=== PATIENT | male | born 1945 | race Caucasian/White ===

== ENCOUNTER 2017-03-29 21:40 | Emergency (ER) | payer MEDICARE, BC ==
[~2017-03-29] VITALS: Ht 185.4 cm; Wt 131.4 kg
[~2017-03-29 21:40] MED LIST: 1-ME1LIQ PO; CARV12.52 PO; CLON.2 PO; GLUCTAB PO; LISI-366 PO; PREVASTATIN PO; SERT-129 PO; TORS20TA PO
[2017-03-29 21:46] VITALS: BP 199/94; PULSE 85; RESP 20; TEMP 98; O2SAT 99
[2017-03-29] MEDS ORDERED: AMLO10TA2 PO (21:50)
[2017-03-29] MEDS ORDERED: LISI40TA PO (21:50)
[2017-03-29] MEDS ORDERED: CLON0.2T PO (21:50)
[2017-03-29] MEDS ORDERED: CARV25TA PO (21:50)
[2017-03-29] MEDS ORDERED: TEMA15CA PO (21:50)
[2017-03-29 21:56] VITALS: BP 183/89; PULSE 78; RESP 24; TEMP 100; O2SAT 98
--- NOTE | 2017-03-29 22:14 | PD ---
HPI Chief Complaint: Respiratory Symptoms Time Seen by Provider: 22:01 Travel History International Travel<30 days: No Contact w/Intl Traveler<30days: No Traveled to known affect area: No History of Present Illness HPI Patient is a 72-year-old male who has had a upper respiratory like infection for the last few days and now he's having severe wheezing comes in by ambulance getting a DuoNeb and having tachypnea and wheezing and shortness of breath. He denies having a COPD history he has no history of asthma he has never had his lungs inflamed as they appear to be now initial exam he has diffuse wheeze in all lung cabrera. And after the first DuoNeb his sat is 95 on room air continues to have increased in formation and wheezing diffuse throughout all his lung cabrera patient denies diabetes hypertension however he did have an VT he said 10 years ago he did not have any stents since then but has had a nuclear stress he said which was normal in the last 5 years. He has not seen another doctor he did not take anything for this upper respiratory infection and again he was treated en route by the paramedics with a DuoNeb continuous PFSH Past Medical History Cardiovascular Problems: Yes Diabetes: Yes Patient Takes Glucophage: No Diminished Hearing: No Hypertension: Yes Musculoskeletal: Yes Respiratory: Yes (SLEEP APNEA ) Immunizations Current: Yes Tetanus Vaccination: < 5 Years Influenza Vaccination: Yes Past Surgical History Abdominal Surgery: Yes (APPENDECTOMY; UMBILICAL HERNIA) Genitourinary Surgery: Yes (TURP) Other Surgery: Yes Social History Alcohol Use: Yes (RARELY) Tobacco Use: No (QUIT IN 1985) Substance Use: No Allergies-Medications (Allergen,Severity, Reaction): Coded Allergies: No Known Allergies (Unverified Adverse Reaction, Unknown, 03/30/17) Reported Meds & Prescriptions Reported Meds & Active Scripts Active Pulmicort Flexhaler (Budesonide Powder Inh) 180 Mcg/Act Inhp 180 Mcg INH Q12HR Prednisone 20 Mg Tab 20 Mg PO BID 10 Days [Albuterol-Ipratropium Neb] 1 AMPULE Nebu 1 Ampule NEB Q6HR NEB 30 Days Nebulizer 1 Mis Mis Ea .ROUTE DIRECTED Atrovent HFA 12.9 GM Inh (Ipratropium [place]) 17 Mcg/Actuation Aer 2 Puff INH Q6HR PRN Levaquin (Levofloxacin) 750 Mg Tablet 750 Mg PO DAILY Reported Temazepam 15 Mg Cap 15 Mg PO HS PRN Amlodipine (Amlodipine Besylate) 10 Mg Tab 10 Mg PO DAILY Carvedilol 25 Mg Tab 25 Mg PO DAILY Lisinopril 40 Mg Tab 40 Mg PO DAILY Clonidine (Clonidine HCl) 0.2 Mg Tab 0.2 Mg PO BID Review of Systems Except as stated in HPI: all other systems reviewed are Neg Respiratory: Positive: Cough, Shortness of Breath, Wheezing, Other (recent upper respiratory infection) Physical Exam Narrative GENERAL: Mild respiratory distress appearance DuoNeb in process SKIN: Warm and dry. HEAD: Atraumatic. Normocephalic. EYES: Pupils equal and round. No scleral icterus. No injection or drainage. ENT: No nasal bleeding or discharge. Mucous membranes pink and moist. NECK: Trachea midline. No JVD. CARDIOVASCULAR: Regular rate and rhythm. RESPIRATORY: No accessory muscle use. Diffuse wheeze in all lung cabrera mildly increased respiratory rate GASTROINTESTINAL: Abdomen soft, non-tender, nondistended. Hepatic and splenic margins not palpable. MUSCULOSKELETAL: Extremities without clubbing, cyanosis, or edema. No obvious deformities. NEUROLOGICAL: Awake and alert. No obvious cranial nerve deficits. Motor grossly within normal limits. Five out of 5 muscle strength in the arms and legs. Normal speech. PSYCHIATRIC: Appropriate mood and affect; insight and judgment normal. Data Data Last Documented VS Vital Signs Date Time Temp Pulse Resp B/P (MAP) Pulse Ox O2 Delivery O2 Flow Rate FiO2 03/30/17 00:51 99.0 75 18 180/70 (106) 96 03/30/17 00:14 Nasal Cannula 03/29/17 22:55 3.00 Orders Orders Complete Blood Count With Diff (03/29/17 22:01) Comprehensive Metabolic Panel (03/29/17 22:01) Ckmb (Isoenzyme) Profile (03/29/17 22:01) Troponin I (03/29/17 22:01) Iv Access Insert/Monitor (03/29/17 22:01) Ecg Monitoring (03/29/17 22:01) Oximetry (03/29/17 22:01) Oxygen Administration (03/29/17 22:01) Chest, Single Ap (03/29/17 22:01) Sodium Chloride 0.9% Flush (Ns Flush) (03/29/17 22:15) Methylprednisolone So Succ Inj (Solumedr (03/29/17 22:15) Albuterol-Ipratropium Neb (Duoneb Neb) (03/29/17 22:15) Levofloxacin 750 Mg Premix Inj (Levaquin (03/29/17 22:15) CKMB (03/29/17 22:10) CKMB% (03/29/17 22:10) Influenzae A/B Antigen (03/29/17 23:48) Ed Discharge Order (03/30/17 00:49) Labs Laboratory Tests Test 03/29/17 22:10 White Blood Count 7.0 TH/MM3 Red Blood Count 4.87 MIL/MM3 Hemoglobin 15.0 GM/DL Hematocrit 45.0 % Mean Corpuscular Volume 92.4 FL Mean Corpuscular Hemoglobin 30.7 PG Mean Corpuscular Hemoglobin Concent 33.3 % Red Cell Distribution Width 13.4 % Platelet Count 278 TH/MM3 Mean Platelet Volume 7.5 FL Neutrophils (%) (Auto) 73.2 % Lymphocytes (%) (Auto) 12.2 % Monocytes (%) (Auto) 10.8 % Eosinophils (%) (Auto) 3.3 % Basophils (%) (Auto) 0.5 % Neutrophils # (Auto) 5.1 TH/MM3 Lymphocytes # (Auto) 0.9 TH/MM3 Monocytes # (Auto) 0.8 TH/MM3 Eosinophils # (Auto) 0.2 TH/MM3 Basophils # (Auto) 0.0 TH/MM3 CBC Comment DIFF FINAL Differential Comment Blood Urea Nitrogen 12 MG/DL Creatinine 0.87 MG/DL Random Glucose 136 MG/DL Total Protein 7.6 GM/DL Albumin 3.2 GM/DL Calcium Level 8.4 MG/DL Alkaline Phosphatase 123 U/L Aspartate Amino Transf (AST/SGOT) 49 U/L Alanine Aminotransferase (ALT/SGPT) 86 U/L Total Bilirubin 0.6 MG/DL Sodium Level 137 MEQ/L Potassium Level 3.3 MEQ/L Chloride Level 102 MEQ/L Carbon Dioxide Level 28.1 MEQ/L Anion Gap 7 MEQ/L Estimat Glomerular Filtration Rate 86 ML/MIN Total Creatine Kinase 121 U/L Creatine Kinase MB 0.6 NG/ML Troponin I LESS THAN 0.02 NG/ML MDM Medical Decision Making Medical Screen Exam Complete: Yes Emergency Medical Condition: Yes Differential Diagnosis Differential diagnosis include reactive airway disease COPD exacerbation asthma attack upper respiratory viral influenza Narrative Course Chest x-ray shows no specific findings he is given multiple nebs and he is given Solu-Medrol is observed and he is O2 sat is 95 on room air mild increased work of breathing he will have a flu swab sent other labs within normal limits. I WATCH AND DO MULTIPLE RE-EVAL IN THE ER OVER 4 HRS AND DISCUSSION ADMISSION VS HOME TREATMENT O2 SAT REMAINS ABOVE 95% AND RR IS NOW 16 SAFE FOR CLOSE OUTPT FOLLOW UP Diagnosis Primary Impression: Bronchitis Patient Instructions: Acute Bronchitis (ED), General Instructions Additional Instructions: Take medication as prescribed if breathing gets worse, or feeling worse return to the ER immediately. Scripts Ipratropium HFA 12.9 GM Inh (Atrovent HFA 12.9 GM Inh) 17 Mcg/Actuation Aer 2 PUFF INH Q6HR Y for SHORTNESS OF BREATH, #1 INHALER 0 Refills Prov: Junior Palencia MD 03/30/17 Levofloxacin (Levaquin) 750 Mg Tablet 750 MG PO DAILY for Infection, #5 TAB 0 Refills Prov: Junior Palencia MD 03/30/17 Disposition: 01 DISCHARGE HOME Condition: Good Junior Palencia MD Mar 29, 2017 22:14
[2017-03-29] MEDS ORDERED: SODIUM CHLORIDE 0.9% FLUSH 10 ML FLUSH IVF PRN (22:15)
[2017-03-29] MEDS ORDERED: LEVOFLOXACIN 750 MG PREMIX INJ 150 ML IV ONE (22:15)
[2017-03-29] MEDS ORDERED: methylPREDNISolone SOD SUCC 125 MG/2 ML VIAL IV PUSH ONE (22:15)
--- NOTE | 2017-03-29 22:20 | RADRPT ---
EXAM DATE/TIME: 03/29/2017 22:05 [facility] COMPARISON: No previous studies available for comparison. INDICATIONS : Shortness of breath. MEDICAL HISTORY : None. SURGICAL HISTORY : None. ENCOUNTER: Initial ACUITY: 1 day PAIN SCORE: 0/10 LOCATION: Bilateral chest FINDINGS: A single view of the chest demonstrates the lungs to be symmetrically aerated without evidence of mas s, infiltrate or effusion. The cardiomediastinal contours are unremarkable. Osseous structures are intact. CONCLUSION: Normal examination. Bravo Bhandari MD on March 29, 2017 at 22:17 Board Certified Radiologist. This report was verified electronically.
[2017-03-29 22:26] VITALS: BP 191/77; PULSE 78; RESP 24; O2SAT 96
[2017-03-29 22:28] LABS: AUTOMATED NEUTROPHIL # 5.1 TH/MM3 (1.8-7.7); BASOPHIL % 0.5 % (0.0-2.0); EOSINOPHIL # 0.2 TH/MM3 (0-0.4); EOSINOPHIL % 3.3 % (0.0-4.0); LYMPH % 12.2 % (9.0-44.0); LYMPHOCYTE # 0.9 TH/MM3 (1.0-4.8); MEAN CELL VOLUME 92.4 FL (80.0-100.0); MEAN CORPUSCULAR HEMOGLOBIN 30.7 PG (27.0-34.0); MEAN CORPUSCULAR HGB CONC 33.3 % (32.0-36.0); MEAN PLATELET VOLUME 7.5 FL (7.0-11.0); MONO % 10.8 % (0.0-8.0); MONOCYTE # 0.8 TH/MM3 (0-0.9); NEUT % 73.2 % (16.0-70.0); PLATELET COUNT 278 TH/MM3 (150-450); RED BLOOD COUNT 4.87 MIL/MM3 (4.50-5.90); RED CELL DISTRIBUTION WIDTH 13.4 % (11.6-17.2)
[2017-03-29 22:38] LABS: CHLORIDE 102 MEQ/L (98-107); SODIUM (NA) 137 MEQ/L (136-145)
[2017-03-29 22:41] LABS: CALCIUM 8.4 MG/DL (8.5-10.1)
[2017-03-29 22:42] LABS: ALBUMIN 3.2 GM/DL (3.4-5.0); BICARBONATE 28.1 MEQ/L (21.0-32.0); BLOOD UREA NITROGEN 12 MG/DL (7-18); GLUCOSE,RANDOM 136 MG/DL (74-106)
[2017-03-29 22:45] LABS: ALT (GPT) 86 U/L (12-78); AST (GOT) 49 U/L (15-37); CREATININE 0.87 MG/DL (0.60-1.30); GLOMERULAR FILTRATION RATE 86 ML/MIN (>89)
[2017-03-29 22:47] LABS: TOTAL BILIRUBIN ADULT 0.6 MG/DL (0.2-1.0); TOTAL PROTEIN 7.6 GM/DL (6.4-8.2)
[2017-03-29 22:48] LABS: ALKALINE PHOSPHATASE 123 U/L (45-117)
[2017-03-29 22:50] LABS: TROPONIN I LESS THAN 0.02 NG/ML (0.02-0.05)
[2017-03-29 22:55] VITALS: BP 179/73; PULSE 76; RESP 22; O2SAT 96
[2017-03-29] MEDS: RESP: ALBUTEROL 2.5 MG/IPRATROPIUM 0.5 MG NEB (SCH) INH (23:01)
[2017-03-30 00:14] VITALS: BP 178/75; PULSE 72; RESP 19; O2SAT 96
[2017-03-30] MEDS ORDERED: PRED50 PO (00:28)
[2017-03-30] MEDS ORDERED: IPRA17I INH (00:28)
[2017-03-30] MEDS ORDERED: LEVA750T9 PO (00:28)
[2017-03-30 00:51] VITALS: BP 180/70; TEMP 99
[2017-03-31] MEDS ORDERED: NEBULIZER1 MI1 (11:07)
[2017-03-31] MEDS ORDERED: Albuterol-Ipratropium Neb NEB (14:22)
[2017-03-31] MEDS ORDERED: PRED20 PO (14:24)
[2017-03-31] MEDS ORDERED: PULM180I INH (14:49)
== END 2017-03-30 00:56 | disposition home or self-care (01) ==
LOC: PHEFT 21:40
DX: J40 Bronchitis, not specified as acute or chronic (principal); I10 Essential (primary) hypertension; G47.30 Sleep apnea, unspecified; Z87.891 Personal history of nicotine dependence
CPT/HCPCS: 71045; 80053; 82550; 82552; 84484; 85025; 94640; 94664; 96365; 96366; 99284; J1956; 87804

== ENCOUNTER 2017-03-30 15:32 | Observation (INO) | payer MEDICARE, BC ==
[~2017-03-30] VITALS: Ht 185.4 cm; Wt 132.2 kg
[~2017-03-30 15:32] MED LIST changes: -1-ME1LIQ PO; +AMLO10TA2 PO; -CARV12.52 PO; +CARV25TA PO; -CLON.2 PO; +CLON0.2T PO; -GLUCTAB PO; +IPRA17I INH; +LEVA750T9 PO; -LISI-366 PO; +LISI40TA PO; +PRED50 PO; -PREVASTATIN PO; -SERT-129 PO; +TEMA15CA PO; -TORS20TA PO
[2017-03-30 15:52] VITALS: BP 207/94; PULSE 89; RESP 28; TEMP 99; O2SAT 89
[2017-03-30] MEDS ORDERED: SODIUM CHLORIDE 0.9% FLUSH 10 ML FLUSH IVF PRN (18:45)
[2017-03-30] MEDS ORDERED: FUROSEMIDE 100 MG/10 ML VIAL IVP ONE (18:45)
--- NOTE | 2017-03-30 18:50 | PD ---
HPI Chief Complaint: Cold / Flu Symptoms Time Seen by Provider: 18:31 Travel History International Travel<30 days: No Contact w/Intl Traveler<30days: No Traveled to known affect area: No History of Present Illness HPI Patient comes in complaining of continued shortness of breath intermittent left- sided chest pain that began yesterday. Denies radiation of the chest pain. Patient was seen and evaluated here in the emergency department diagnosed with bronchitis and sent home with prescriptions. Patient states that he has been taking antibiotic along with one dose of steroids today however was unable to afford the inhaler that was prescribed and has not have a breathing treatment since being discharged from the ER yesterday. Patient reports dyspnea on exertion, orthopnea, and wheezing. Patient reports edema bilateral lower extremities over the past 3 weeks. Denies any recent travel. Denies any fever , nausea, vomiting, diarrhea, back pain, neck pain, or history of lung disease. Denies history of CHF. Patient denies any oxygen use at home but does use a CPAP at night. Patient reports history of diabetes but no longer medication secondary to being diet controlled. 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 Fabian 3 weeks ago and was told everything was fine per patient. PFSH Past Medical History Anxiety: Yes Cardiovascular Problems: Yes Diabetes: Yes Patient Takes Glucophage: No (CONTROLED BY DIET) Diminished Hearing: No Hypertension: Yes Medical other: Yes (STRESS TEST) Musculoskeletal: Yes Respiratory: Yes (SLEEP APNEA ) Immunizations Current: Yes Tetanus Vaccination: < 5 Years Past Surgical History Abdominal Surgery: Yes (APPENDECTOMY; UMBILICAL HERNIA) Appendectomy: Yes Genitourinary Surgery: Yes (TURP) Other Surgery: Yes (BACK) Social History Alcohol Use: Yes (RARELY) Tobacco Use: No (QUIT IN 1985) Substance Use: No Allergies-Medications (Allergen,Severity, Reaction): Coded Allergies: No Known Allergies (Unverified Adverse Reaction, Unknown, 03/30/17) Reported Meds & Prescriptions Reported Meds & Active Scripts Active Atrovent HFA 12.9 GM Inh (Ipratropium [place]) 17 Mcg/Actuation Aer 2 Puff INH Q6HR PRN Levaquin (Levofloxacin) 750 Mg Tablet 750 Mg PO DAILY Reported Temazepam 15 Mg Cap 15 Mg PO HS PRN Amlodipine (Amlodipine Besylate) 10 Mg Tab 10 Mg PO DAILY Carvedilol 25 Mg Tab 25 Mg PO DAILY Lisinopril 40 Mg Tab 40 Mg PO DAILY Clonidine (Clonidine HCl) 0.2 Mg Tab 0.2 Mg PO BID Review of Systems Except as stated in HPI: all other systems reviewed are Neg Physical Exam Narrative GENERAL: Well-developed, overly nourished, in mild distress, and non-ill appearing. SKIN: Focused skin assessment warm and dry. HEAD: Atraumatic. Normocephalic. EYES: Pupils equal and round. EOMI. No scleral icterus. No injection or drainage. ENT: No nasal bleeding or discharge. Mucous membranes pink and moist. NECK: Trachea midline. Supple. No nuclear rigidity. CARDIOVASCULAR: Regular rate and rhythm. No murmur appreciated. RESPIRATORY: Accessory muscle use. Mild respiratory distress. Wheezing throughout. Tachypnea noted. Patient speaking in full sentences but struggling some. MUSCULOSKELETAL: No obvious deformities. No clubbing. No cyanosis. 2+ pitting edema bilateral lower extremities. Full range of motion. NEUROLOGICAL: Awake and alert. No obvious cranial nerve deficits. Motor grossly within normal limits. Normal speech. PSYCHIATRIC: Appropriate mood and affect; insight and judgment normal. Data Data Last Documented VS Vital Signs Date Time Temp Pulse Resp B/P (MAP) Pulse Ox O2 Delivery O2 Flow Rate FiO2 03/30/17 20:14 95 03/30/17 20:14 77 18 03/30/17 19:08 21 03/30/17 18:43 Room Air 03/30/17 15:52 99.0 Orders Orders Electrocardiogram (03/30/17 16:05) Complete Blood Count With Diff (03/30/17 18:34) Basic Metabolic Panel (Bmp) (03/30/17 18:34) B-Type Natriuretic Peptide (03/30/17 18:34) Act Partial Throm Time (Ptt) (03/30/17 18:34) Prothrombin Time / Inr (Pt) (03/30/17 18:34) Magnesium (Mg) (03/30/17 18:34) Ckmb (Isoenzyme) Profile (03/30/17 18:34) Troponin I (03/30/17 18:34) Arterial Blood Gas (Abg) (03/30/17 18:34) Iv Access Insert/Monitor (03/30/17 18:34) Ecg Monitoring (03/30/17 18:34) Oximetry (03/30/17 18:34) Oxygen Administration (03/30/17 18:34) Chest, Single Ap (03/30/17 18:34) Ct Pulmonary Angiogram (03/30/17 18:34) Sodium Chloride 0.9% Flush (Ns Flush) (03/30/17 18:45) Albuterol-Ipratropium Neb (Duoneb Neb) (03/30/17 18:45) Furosemide Inj (Lasix Inj) (03/30/17 18:45) Iohexol 350 Inj (Omnipaque 350 Inj) (03/30/17 19:30) CKMB (03/30/17 19:00) CKMB% (03/30/17 19:00) Sodium Chlorid 0.9% 500 Ml Inj (Ns 500 M (03/30/17 20:00) Methylprednisolone So Succ Inj (Solumedr (03/30/17 20:00) Aspirin Chew (Aspirin Chew) (03/30/17 20:30) Admit Order (Ed Use Only) (03/30/17 21:00) Labs Laboratory Tests Test 03/30/17 18:55 03/30/17 19:00 Blood Gas Puncture Site RT RADIAL Blood Gas Patient Temperature 98.6 Blood Gas HCO3 23 mmol/L Blood Gas Base Excess -0.2 mmol/L Blood Gas Oxygen Saturation 95 % Arterial Blood pH 7.49 Arterial Blood Partial Pressure CO2 31 mmHG Arterial Blood Partial Pressure O2 78 mmHG Arterial Blood Oxygen Content 22.1 Vol % Arterial Blood Carboxyhemoglobin 1.3 % Arterial Blood Methemoglobin 0.9 % Blood Gas Hemoglobin 16.6 G/DL Oxygen Delivery Device ROOM AIR Blood Gas Inspired Oxygen 21 % White Blood Count 11.6 TH/MM3 Red Blood Count 5.55 MIL/MM3 Hemoglobin 16.5 GM/DL Hematocrit 50.6 % Mean Corpuscular Volume 91.2 FL Mean Corpuscular Hemoglobin 29.7 PG Mean Corpuscular Hemoglobin Concent 32.6 % Red Cell Distribution Width 12.7 % Platelet Count 361 TH/MM3 Mean Platelet Volume 7.5 FL Neutrophils (%) (Auto) 87.6 % Lymphocytes (%) (Auto) 5.3 % Monocytes (%) (Auto) 5.8 % Eosinophils (%) (Auto) 0.1 % Basophils (%) (Auto) 1.2 % Neutrophils # (Auto) 10.2 TH/MM3 Lymphocytes # (Auto) 0.6 TH/MM3 Monocytes # (Auto) 0.7 TH/MM3 Eosinophils # (Auto) 0.0 TH/MM3 Basophils # (Auto) 0.1 TH/MM3 CBC Comment DIFF FINAL Differential Comment Prothrombin Time 10.9 SEC Prothromb Time International Ratio 1.1 RATIO Activated Partial Thromboplast Time 27.6 SEC Blood Urea Nitrogen 17 MG/DL Creatinine 1.10 MG/DL Random Glucose 175 MG/DL Calcium Level 9.7 MG/DL Magnesium Level 2.2 MG/DL Sodium Level 137 MEQ/L Potassium Level 3.8 MEQ/L Chloride Level 103 MEQ/L Carbon Dioxide Level 25.6 MEQ/L Anion Gap 8 MEQ/L Estimat Glomerular Filtration Rate 66 ML/MIN Total Creatine Kinase 139 U/L Creatine Kinase MB 1.2 NG/ML Troponin I LESS THAN 0.02 NG/ML B-Type Natriuretic Peptide 133 PG/ML MDM Medical Decision Making Medical Screen Exam Complete: Yes Emergency Medical Condition: Yes Interpretation(s) EKG reviewed by Dr. Liz shows sinus rhythm with ventricular rate of 76. No STEMI. Differential Diagnosis COPD exacerbation, pneumonia, bronchitis, PE, atypical chest pain, CHF exacerbation, pneumothorax Narrative Course Patient was seen and examined. IV was established patient was placed on cardiac monitoring. Initial laboratory and radiological studies were ordered. Patient was given breathing treatments, IV steroids, and IV Lasix. Patient reports improvement of symptoms status post medications. Discussed patient with Dr. Liz, who saw and evaluated the patient recommends having patient admitted for further treatment and evaluation. This was discussed with patient , who is agreeable for admission. All questions were answered. Patient remained stable throughout ED course. Patient signed out to Dr. Liz pending admission. Please see her documentation for final diagnosis and disposition. Scripts Budesonide Powder Inh (Pulmicort Flexhaler) 180 Mcg/Act Inhp 180 MCG INH Q12HR for Asthma Management, #1 INHALER 0 Refills Prov: Leonila Alexander MD 03/31/17 Prednisone (Prednisone) 20 Mg Tab 20 MG PO BID for bronchitis for 10 Days, #20 TAB 0 Refills Prov: Екатерина Negrete RADIOLOGY TECH 03/31/17 [Albuterol-Ipratropium Neb] 1 AMPULE NEBU No Conflict Check 1 AMPULE NEB Q6HR NEB for wheezing for 30 Days, #30 Prov: Екатерина Negrete 03/31/17 Nebulizer (Nebulizer) 1 Mis Mis EA .ROUTE DIRECTED for Breathing Treatment, #1 0 Refills Prov: Екатерина Negrete 03/31/17 Patrick Araujo Mar 30, 2017 18:50
[2017-03-30] MEDS: RESP: ALBUTEROL 2.5 MG/IPRATROPIUM 0.5 MG NEB (SCH) INH (18:57)
[2017-03-30 19:08] VITALS: O2SAT 98
[2017-03-30 19:10] LABS: AUTOMATED NEUTROPHIL # 10.2 TH/MM3 (1.8-7.7); BASOPHIL # 0.1 TH/MM3 (0-0.2); BASOPHIL % 1.2 % (0.0-2.0); EOSINOPHIL % 0.1 % (0.0-4.0); HEMATOCRIT 50.6 % (39.0-51.0); HEMOGLOBIN 16.5 GM/DL (13.0-17.0); LYMPH % 5.3 % (9.0-44.0); LYMPHOCYTE # 0.6 TH/MM3 (1.0-4.8); MEAN CELL VOLUME 91.2 FL (80.0-100.0); MEAN CORPUSCULAR HEMOGLOBIN 29.7 PG (27.0-34.0); MEAN CORPUSCULAR HGB CONC 32.6 % (32.0-36.0); MEAN PLATELET VOLUME 7.5 FL (7.0-11.0); MONO % 5.8 % (0.0-8.0); MONOCYTE # 0.7 TH/MM3 (0-0.9); NEUT % 87.6 % (16.0-70.0); PLATELET COUNT 361 TH/MM3 (150-450); RED BLOOD COUNT 5.55 MIL/MM3 (4.50-5.90); RED CELL DISTRIBUTION WIDTH 12.7 % (11.6-17.2); WHITE BLOOD COUNT 11.6 TH/MM3 (4.0-11.0)
--- NOTE | 2017-03-30 19:11 | RADRPT ---
EXAM DATE/TIME: 03/30/2017 18:41 [facility] COMPARISON: CHEST SINGLE AP, March 29, 2017, 22:05. INDICATIONS : Short of breath for two days. MEDICAL HISTORY : None. SURGICAL HISTORY : None. ENCOUNTER: Initial ACUITY: 2 days PAIN SCORE: 0/10 LOCATION: Bilateral chest FINDINGS: A single view of the chest demonstrates the lungs to be symmetrically aerated without evidence of mas s, infiltrate or effusion. The cardiomediastinal contours are unremarkable. Osseous structures are intact. CONCLUSION: No evidence of acute cardiopulmonary disease. Tyler He MD on March 30, 2017 at 19:08 Board Certified Radiologist. This report was verified electronically.
[2017-03-30 19:21] LABS: CHLORIDE 103 MEQ/L (98-107); SODIUM (NA) 137 MEQ/L (136-145)
[2017-03-30 19:26] LABS: INTERNATIONAL NORMALIZED RATIO 1.1 RATIO; PROTHROMBIN TIME - PATIENT 10.9 SEC (9.8-11.6)
[2017-03-30] MEDS ORDERED: IOHEXOL 350 MG/ML 10 ML VIAL (for RAD DIAG) IVCONTRAST ONE (19:30)
[2017-03-30 19:40] LABS: BICARBONATE 25.6 MEQ/L (21.0-32.0); BLOOD UREA NITROGEN 17 MG/DL (7-18); CALCIUM 9.7 MG/DL (8.5-10.1); GLOMERULAR FILTRATION RATE 66 ML/MIN (>89); GLUCOSE,RANDOM 175 MG/DL (74-106); MAGNESIUM 2.2 MG/DL (1.5-2.5); TROPONIN I LESS THAN 0.02 NG/ML (0.02-0.05)
[2017-03-30] MEDS ORDERED: methylPREDNISolone SOD SUCC 125 MG/2 ML VIAL IV PUSH SCH (20:00)
[2017-03-30] MEDS ORDERED: SODIUM CHLORID 0.9% 500 ML INJ 500 ML IV ONE (20:00)
--- NOTE | 2017-03-30 20:04 | RADRPT ---
EXAM DATE/TIME: 03/30/2017 19:31 [facility] COMPARISON: No previous studies available for comparison. INDICATIONS : Shortness of breath since yesterday IV CONTRAST: 75 cc Omnipaque 350 (iohexol) IV RADIATION DOSE: 21.67 CTDIvol (mGy) MEDICAL HISTORY : Diabetes mellitus type 2. Hypertension. SURGICAL HISTORY : Appendectomy. Umbilical hernia repair. ENCOUNTER: Initial ACUITY: 2 days PAIN SCALE: 3/10 LOCATION: chest TECHNIQUE: Volumetric scanning of the chest was performed using a pulmonary embolism protocol MIP images were re constructed. Using automated exposure control and adjustment of the mA and/or kV according to patien t size, radiation dose was kept as low as reasonably achievable to obtain optimal diagnostic quality images. DICOM format image data is available electronically for review and comparison. Follow-up recommendations for detected pulmonary nodules are based at a minimum on nodule size and pa tient risk factors according to Fleischner Society Guidelines. FINDINGS: There is no pulmonary embolus. Minimal bronchiectasis and very mild tree in bud type infiltrate seen in both bases. No confluent or lobar consolidation. No pleural effusion or pneumothorax. Numerous mediastinal lymph nodes are present, largest subcarinal measuring 16 x 32 mm. There is also a 14 x 17 mm right hilar lymph node. Multinodular goiter seen and extends partly into the chest. Normal heart size. Faint coronary artery calcification, most conspicuous left main and left anterior descending. CONCLUSION: 1. No pulmonary embolus. 2. Trace bronchiectasis and atypical/inflammatory appearing infiltrate and/or colonization of both ba ses. 3. Nonspecific mediastinal and right hilar lymphadenopathy. 4. Coronary artery calcifications. Tyler He MD on March 30, 2017 at 19:59 Board Certified Radiologist. This report was verified electronically.
[2017-03-30 20:14] VITALS: BP 184/87; PULSE 77; RESP 18; O2SAT 95
[2017-03-30] MEDS ORDERED: ASPIRIN 81 MG CHEW TAB CHEW ONE (20:30)
--- NOTE | 2017-03-30 21:01 | PD ---
Physical Exam Narrative I, Dr. Liz, have reviewed the advance practice practitioner's documentation and am in agreement, met with the patient face to face, made the diagnosis, and the medical decision making was done by me. *My assessment and Findings: COPD exacerbation vs. CHF vs. ACS 72yo M with c/o sob and chest pain. Chest pain is pressure like and intermittent. It is left sided and started when he was just sitting down. Pt was seen here yesterday and discharge with impression of bronchitis and has been taking antibiotics, steroids but he could not afford the advair. Labs reviewed, WBC 11.6. BNP mildly elevated at 133. Troponin negative. CT angio showed no PE. Trace bronchiectasis and atypical/inflammatory appearing infiltrate and or colonization of both bases. Pt feels better after duonebs, steroid. Pt still with mild expiratory wheezing. However, pt has not had stress test for 1.5 years. Pt follows with Dr. Fabian. Will admit for observation for COPD exacerbation and ACS rule out for chest pain. Discussed with Dr. Dolan and accepted to hers service. Data Data Last Documented VS Vital Signs Date Time Temp Pulse Resp B/P (MAP) Pulse Ox O2 Delivery O2 Flow Rate FiO2 03/30/17 20:14 95 03/30/17 20:14 77 18 03/30/17 18:43 Room Air 03/30/17 15:52 99.0 Orders Orders Electrocardiogram (03/30/17 16:05) Complete Blood Count With Diff (03/30/17 18:34) Basic Metabolic Panel (Bmp) (03/30/17 18:34) B-Type Natriuretic Peptide (03/30/17 18:34) Act Partial Throm Time (Ptt) (03/30/17 18:34) Prothrombin Time / Inr (Pt) (03/30/17 18:34) Magnesium (Mg) (03/30/17 18:34) Ckmb (Isoenzyme) Profile (03/30/17 18:34) Troponin I (03/30/17 18:34) Arterial Blood Gas (Abg) (03/30/17 18:34) Iv Access Insert/Monitor (03/30/17 18:34) Ecg Monitoring (03/30/17 18:34) Oximetry (03/30/17 18:34) Oxygen Administration (03/30/17 18:34) Chest, Single Ap (03/30/17 18:34) Ct Pulmonary Angiogram (03/30/17 18:34) Sodium Chloride 0.9% Flush (Ns Flush) (03/30/17 18:45) Albuterol-Ipratropium Neb (Duoneb Neb) (03/30/17 18:45) Furosemide Inj (Lasix Inj) (03/30/17 18:45) Iohexol 350 Inj (Omnipaque 350 Inj) (03/30/17 19:30) CKMB (03/30/17 19:00) CKMB% (03/30/17 19:00) Sodium Chlorid 0.9% 500 Ml Inj (Ns 500 M (03/30/17 20:00) Methylprednisolone So Succ Inj (Solumedr (03/30/17 20:00) Aspirin Chew (Aspirin Chew) (03/30/17 20:30) Admit Order (Ed Use Only) (03/30/17 21:00) Place In Observation (03/30/17 ) Vital Signs (Adult) Q4H (03/30/17 21:01) Activity Oob With Assistance (03/30/17 21:01) Payroll Professional / Telemetry .CONTINUOUS (03/30/17 21:01) Diet Npo (03/31/17 Breakfast) Sodium Chloride 0.9% Flush (Ns Flush) (03/30/17 21:15) Sodium Chloride 0.9% Flush (Ns Flush) (03/31/17 09:00) Basic Metabolic Panel (Bmp) (03/31/17 06:00) Complete Blood Count With Diff (03/31/17 06:00) Creatine Kinase (Cpk) (03/31/17 02:00) Creatine Kinase (Cpk) (03/31/17 08:00) Troponin I (03/31/17 02:00) Troponin I (03/31/17 08:00) Electrocardiogram (03/31/17 02:00) Electrocardiogram (03/31/17 08:00) Pt Request For Service (03/30/17 21:01) Case Management Consult (03/30/17 21:01) Naloxone Inj (Narcan Inj) (03/30/17 21:15) Albuterol-Ipratropium Neb (Duoneb Neb) (03/30/17 22:00) Albuterol-Ipratropium Neb (Duoneb Neb) (03/30/17 21:15) Labs Laboratory Tests Test 03/30/17 18:55 03/30/17 19:00 Blood Gas Puncture Site RT RADIAL Blood Gas Patient Temperature 98.6 Blood Gas HCO3 23 mmol/L Blood Gas Base Excess -0.2 mmol/L Blood Gas Oxygen Saturation 95 % Arterial Blood pH 7.49 Arterial Blood Partial Pressure CO2 31 mmHG Arterial Blood Partial Pressure O2 78 mmHG Arterial Blood Oxygen Content 22.1 Vol % Arterial Blood Carboxyhemoglobin 1.3 % Arterial Blood Methemoglobin 0.9 % Blood Gas Hemoglobin 16.6 G/DL Oxygen Delivery Device ROOM AIR Blood Gas Inspired Oxygen 21 % White Blood Count 11.6 TH/MM3 Red Blood Count 5.55 MIL/MM3 Hemoglobin 16.5 GM/DL Hematocrit 50.6 % Mean Corpuscular Volume 91.2 FL Mean Corpuscular Hemoglobin 29.7 PG Mean Corpuscular Hemoglobin Concent 32.6 % Red Cell Distribution Width 12.7 % Platelet Count 361 TH/MM3 Mean Platelet Volume 7.5 FL Neutrophils (%) (Auto) 87.6 % Lymphocytes (%) (Auto) 5.3 % Monocytes (%) (Auto) 5.8 % Eosinophils (%) (Auto) 0.1 % Basophils (%) (Auto) 1.2 % Neutrophils # (Auto) 10.2 TH/MM3 Lymphocytes # (Auto) 0.6 TH/MM3 Monocytes # (Auto) 0.7 TH/MM3 Eosinophils # (Auto) 0.0 TH/MM3 Basophils # (Auto) 0.1 TH/MM3 CBC Comment DIFF FINAL Differential Comment Prothrombin Time 10.9 SEC Prothromb Time International Ratio 1.1 RATIO Activated Partial Thromboplast Time 27.6 SEC Blood Urea Nitrogen 17 MG/DL Creatinine 1.10 MG/DL Random Glucose 175 MG/DL Calcium Level 9.7 MG/DL Magnesium Level 2.2 MG/DL Sodium Level 137 MEQ/L Potassium Level 3.8 MEQ/L Chloride Level 103 MEQ/L Carbon Dioxide Level 25.6 MEQ/L Anion Gap 8 MEQ/L Estimat Glomerular Filtration Rate 66 ML/MIN Total Creatine Kinase 139 U/L Creatine Kinase MB 1.2 NG/ML Troponin I LESS THAN 0.02 NG/ML B-Type Natriuretic Peptide 133 PG/ML MDM Supervised Visit with KAYLIE: Yes Interpretation(s) EKG: NSR 76bpm. Normal axis. No ST segment elevation or depression. Diagnosis Primary Impression: COPD exacerbation Additional Impression: Chest pain Qualified Codes: R07.9 - Chest pain, unspecified Admitting Information Admitting Physician Requests: Maria Victoria Dawson DO Mar 30, 2017 21:01
[2017-03-30] MEDS ORDERED: NALOXONE HCL 0.4 MG/ML AMP IV PUSH PRN (21:15)
[2017-03-30] MEDS ORDERED: RESP: ALBUTEROL 2.5 MG/IPRATROPIUM 0.5 MG NEB (PRN) NEB (21:15)
[2017-03-30] MEDS ORDERED: SODIUM CHLORIDE 0.9% FLUSH 10 ML FLUSH IV FLUSH PRN (21:15)
[2017-03-30 21:27] VITALS: BP 195/90; PULSE 77; O2SAT 94
[2017-03-30 23:10] VITALS: O2SAT 95
[2017-03-30] MEDS: RESP: ALBUTEROL 2.5 MG/IPRATROPIUM 0.5 MG NEB (SCH) NEB (23:10)
[2017-03-31] VITALS: BP 171/88; PULSE 70; RESP 20; TEMP 98.5; O2SAT 94
[2017-03-31] MEDS: RESP: ALBUTEROL 2.5 MG/IPRATROPIUM 0.5 MG NEB (SCH) NEB ×3 (03:50→15:28)
[2017-03-31 04:00] VITALS: BP 176/81; PULSE 79; RESP 20; TEMP 98.1; O2SAT 93
[2017-03-31 08:00] VITALS: BP 184/80; PULSE 84; RESP 20; TEMP 97.7; O2SAT 94
--- NOTE | 2017-03-31 08:31 | HHI.HP ---
[facility] Gold Welsh MD Admission Diagnosis COPD exacerbation, chest pain Diagnoses: (1) COPD exacerbation Diagnosis: Principal Chief Complaint: Shortness of breath Travel History International Travel<30 Days: No Contact w/Intl Traveler <30 Da: No Traveled to Known Affected Are: No History of Present Illness Written by Екатерина Negrete, acting as scribe for Dr. Alexander on 03/31/17 at 0831. This is a 72-year-old male patient with a known medical history of hyperlipidemia, hypertension, and COPD recently ED with complaints of worsening chest pain. Patient states that he was evaluated in the ED the day ago and was sent home on antibiotics and steroids but when returning home he just progressively got worse and complains of worsening shortness of breath, and wheezing. Patient states that he did have a nonproductive cough with complaints of associated chest discomfort. Patient states that this chest discomfort lasted less than one second 2 and went away once the coughing has resolved. Denies any history of CHF or CAD. He denies any recent fevers, chills, abdominal pain, nausea, vomiting, diarrhea or dysuria. Patient does state that he underwent stress test in 2013 and was reportedly negative. Patient follows with Dr. Fabian in the outpatient setting for cardiology. Does have a chronic first degree AV block. Spoke to Dr. Fabian who is comfortable without working him up for chest pain performed a coronary stress test, has just followed with him last week. Patient does have uncontrolled hypertension, on multiple medications. Has complained of bilateral lower extremity swelling for the past three weeks. Review of Systems Constitutional: DENIES: Fever, Chills Eyes: DENIES: Blurred vision Ears, nose, mouth, throat: DENIES: Vertigo Respiratory: COMPLAINS OF: Cough, Shortness of breath, DENIES: Sputum production Cardiovascular: COMPLAINS OF: Chest pain, Lower Extremity Edema, DENIES: Palpitations Gastrointestinal: DENIES: Abdominal pain, Black stools, Bloody stools, Constipation, Diarrhea, Nausea, Vomiting Musculoskeletal: DENIES: Joint pain Hematologic/lymphatic: DENIES: Bruising Neurologic: DENIES: Abnormal gait Psychiatric: DENIES: Anxiety Except as stated in HPI: all other systems reviewed are Neg Past Family Social History Past Medical History Anxiety Hypertension COPD Sleep apnea Past Surgical History Appendectomy Repair of umbilical hernia TURP procedure Right leg surgery Back surgery Reported Medications Current Medications Medications (Trade) Dose Ordered Sig/Eris Route Start Time Stop Time Status Last Admin (SoluMEDROL INJ) 60 mg ONCE IV PUSH 03/30/17 20:00 03/30/17 21:06 (NS Flush) 2 ml UNSCH PRN IV FLUSH 03/30/17 21:15 (NS Flush) 2 ml BID IV FLUSH 03/31/17 09:00 (Narcan Inj) 0.4 mg UNSCH PRN IV PUSH 03/30/17 21:15 (Duoneb Neb) 1 ampule Q6HR NEB NEB 03/30/17 22:00 03/31/17 10:14 (Duoneb Neb) 1 ampule Q2HR NEB PRN NEB 03/30/17 21:15 Levofloxacin/ Dextrose 150 ml @ 100 mls/hr Q24H IV 03/31/17 09:00 03/31/17 08:56 (Norvasc) 10 mg DAILY PO 03/31/17 10:00 03/31/17 11:16 (Coreg) 25 mg DAILY PO 03/31/17 10:00 03/31/17 11:16 (Catapres) 0.2 mg BID PO 03/31/17 10:00 03/31/17 11:16 (Prinivil) 40 mg DAILY PO 03/31/17 10:00 03/31/17 11:16 Allergies: Coded Allergies: No Known Allergies (Unverified Adverse Reaction, Unknown, 03/30/17) Active Ordered Medications Current Medications Medications (Trade) Dose Ordered Sig/Eris Route Start Time Stop Time Status Last Admin (SoluMEDROL INJ) 60 mg ONCE IV PUSH 03/30/17 20:00 03/30/17 21:06 (NS Flush) 2 ml UNSCH PRN IV FLUSH 03/30/17 21:15 (NS Flush) 2 ml BID IV FLUSH 03/31/17 09:00 (Narcan Inj) 0.4 mg UNSCH PRN IV PUSH 03/30/17 21:15 (Duoneb Neb) 1 ampule Q6HR NEB NEB 03/30/17 22:00 03/31/17 10:14 (Duoneb Neb) 1 ampule Q2HR NEB PRN NEB 03/30/17 21:15 Levofloxacin/ Dextrose 150 ml @ 100 mls/hr Q24H IV 03/31/17 09:00 03/31/17 08:56 (Norvasc) 10 mg DAILY PO 03/31/17 10:00 03/31/17 11:16 (Coreg) 25 mg DAILY PO 03/31/17 10:00 03/31/17 11:16 (Catapres) 0.2 mg BID PO 03/31/17 10:00 03/31/17 11:16 (Prinivil) 40 mg DAILY PO 03/31/17 10:00 03/31/17 11:16 Family History Patient denies any significant family medical history. Social History Patient denies any current tobacco use. Denies any alcohol use. Denies any illicit drug use. Physical Exam Vital Signs Vital Signs Date Time Temp Pulse Resp B/P (MAP) Pulse Ox O2 Delivery O2 Flow Rate FiO2 03/31/17 04:00 98.1 79 20 176/81 (112) 93 03/31/17 00:00 98.5 70 20 171/88 (115) 94 03/30/17 23:10 95 21 03/30/17 22:49 03/30/17 21:27 77 195/90 (125) 94 03/30/17 20:14 95 03/30/17 20:14 77 18 184/87 (119) 95 03/30/17 19:08 98 21 03/30/17 18:43 95 Room Air 03/30/17 15:52 99.0 89 28 207/94 (131) 89 Physical Exam GENERAL: This is a well-nourished, well-developed patient, in no apparent distress. SKIN: No rashes, ecchymoses or lesions. Cool and dry. HEAD: Atraumatic. Normocephalic. EYES: Pupils equal round and reactive. Extraocular motions intact. No scleral icterus. No injection or drainage. ENT: Nose without bleeding, purulent drainage or septal hematoma. Throat without erythema, tonsillar hypertrophy or exudate. Uvula midline. Airway patent. NECK: Trachea midline. No JVD. Supple. CARDIOVASCULAR: Regular rate and rhythm without murmurs, gallops, or rubs. No reproducible chest pain to palpation. RESPIRATORY: Diffuse expiratory wheezing throughout posterior upper and lower lung cabrera. Breath sounds equal bilaterally. No wheezes, rales, or rhonchi. GASTROINTESTINAL: Abdomen soft, non-tender, nondistended. Round. No guarding. MUSCULOSKELETAL: Extremities without clubbing, cyanosis. No joint tenderness, effusion, or edema noted. Bilateral lower extremity edema, 2+. NEUROLOGICAL: Awake and alert. Cranial nerves II through XII intact. Motor and sensory grossly within normal limits. Five out of 5 muscle strength in all muscle groups. Normal speech. Laboratory Laboratory Tests Test 03/30/17 18:55 03/30/17 19:00 Blood Gas Puncture Site RT RADIAL Blood Gas Patient Temperature 98.6 Blood Gas HCO3 23 Blood Gas Base Excess -0.2 Blood Gas Oxygen Saturation 95 Arterial Blood pH 7.49 Arterial Blood Partial Pressure CO2 31 Arterial Blood Partial Pressure O2 78 Arterial Blood Oxygen Content 22.1 Arterial Blood Carboxyhemoglobin 1.3 Arterial Blood Methemoglobin 0.9 Blood Gas Hemoglobin 16.6 Oxygen Delivery Device ROOM AIR Blood Gas Inspired Oxygen 21 White Blood Count 11.6 Red Blood Count 5.55 Hemoglobin 16.5 Hematocrit 50.6 Mean Corpuscular Volume 91.2 Mean Corpuscular Hemoglobin 29.7 Mean Corpuscular Hemoglobin Concent 32.6 Red Cell Distribution Width 12.7 Platelet Count 361 Mean Platelet Volume 7.5 Neutrophils (%) (Auto) 87.6 Lymphocytes (%) (Auto) 5.3 Monocytes (%) (Auto) 5.8 Eosinophils (%) (Auto) 0.1 Basophils (%) (Auto) 1.2 Neutrophils # (Auto) 10.2 Lymphocytes # (Auto) 0.6 Monocytes # (Auto) 0.7 Eosinophils # (Auto) 0.0 Basophils # (Auto) 0.1 CBC Comment DIFF FINAL Differential Comment Prothrombin Time 10.9 Prothromb Time International Ratio 1.1 Activated Partial Thromboplast Time 27.6 Blood Urea Nitrogen 17 Creatinine 1.10 Random Glucose 175 Calcium Level 9.7 Magnesium Level 2.2 Sodium Level 137 Potassium Level 3.8 Chloride Level 103 Carbon Dioxide Level 25.6 Anion Gap 8 Estimat Glomerular Filtration Rate 66 Total Creatine Kinase 139 Creatine Kinase MB 1.2 Troponin I LESS THAN 0.02 B-Type Natriuretic Peptide 133 Result Diagram: 03/30/17189903/30/171899 Imaging Last Impressions Chest X-Ray 03/30/171833 Signed Impressions: Service Date/Time: March 18:41 - CONCLUSION: No evidence of acute cardiopulmonary disease. Tyler He MD CT Angiography 03/30/171833 Signed Impressions: Service Date/Time: March 19:31 - CONCLUSION: 1. No pulmonary embolus. 2. Trace bronchiectasis and atypical/inflammatory appearing infiltrate and/or colonization of both bases. 3. Nonspecific mediastinal and right hilar lymphadenopathy. 4. Coronary artery calcifications. Tyler He MD Septic Shock Reassessment Septic shock perfusion: reassessment completed Caprini VTE Risk Assessment Caprini VTE Risk Assessment: Mod/High Risk (score >= 2) Caprini Risk Assessment Model Point Value = 1 Point Value = 2 Point Value = 3 Point Value = 5 Age 41-60 Minor surgery BMI > 25 kg/m2 Swollen legs Varicose veins or History of unexplained or recurrent spontaneous Oral contraceptives or hormone replacement Sepsis (< 1 month) Serious lung disease, including pneumonia (< 1 month) Abnormal pulmonary function Acute myocardial infarction Congestive heart failure (< 1 month) History of inflammatory bowel disease Medical patient at bed rest Age 61-74 Arthroscopic surgery Major open surgery (> 45 min) Laparoscopic surgery (> 45 min) Malignancy Confined to bed (> 72 hours) Immobilizing plaster cast Central venous access Age >= 75 History of VTE Family history of VTE Factor V Leiden Prothrombin [id number] Lupus anticoagulant Anticardiolipin antibodies Elevated serum homocysteine Heparin-induced thrombocytopenia Other congenital or acquired thrombophilia Stroke (< 1 month) Elective arthroplasty Hip, pelvis, or leg fracture Acute spinal cord injury (< 1 month) Prophylaxis Regimen Total Risk Factor Score Risk Level Prophylaxis Regimen 0-1 Low Early ambulation 2 Moderate Order ONE of the following: *Sequential Compression Device (SCD) *Heparin 5000 units SQ BID 3-4 Higher Order ONE of the following medications: *Heparin 5000 units SQ TID *Enoxaparin/Lovenox 40 mg SQ daily (WT < 150 kg, CrCl > 30 mL/min) *Enoxaparin/Lovenox 30 mg SQ daily (WT < 150 kg, CrCl > 10-29 mL/min) *Enoxaparin/Lovenox 30 mg SQ BID (WT < 150 kg, CrCl > 30 mL/min) AND/OR *Sequential Compression Device (SCD) 5 or more Highest Order ONE of the following medications: *Heparin 5000 units SQ TID (Preferred with Epidurals) *Enoxaparin/Lovenox 40 mg SQ daily (WT < 150 kg, CrCl > 30 mL/min) *Enoxaparin/Lovenox 30 mg SQ daily (WT < 150 kg, CrCl > 10-29 mL/min) *Enoxaparin/Lovenox 30 mg SQ BID (WT < 150 kg, CrCl > 30 mL/min) AND *Sequential Compression Device (SCD) Assessment and Plan Problem List: (1) COPD exacerbation ICD Code: J44.1 - Chronic obstructive pulmonary disease with (acute) exacerbation Status: Acute Plan: Patient has been admitted for observation. He was given IV steroids in the ED. Renato nebs scheduled and as needed. Chest x-ray reviewed showing no evidence of acute cardiopulmonary disease. CTA was also performed to rule out any PE, was negative. Does show some trace bronchiectasis and inflammatory appearing infiltrate and/or colonization of both bases. Patient is now on room air, sitting comfortably on side of bed. States he feels much better, no symptoms have improved. Denies any current chest pain. Coughing has improved. Vital signs are stable overnight. Patient is hypertensive, this was prior to receiving his home medications for over forty- eight hours. Will restart. Continue BP trends. Mild leukocytosis on presentation, likely due to prednisone prescription given in ED. Patient's wheezing improves later today after IV steroids and breathing treatments, as well as blood pressure being controlled patient is okay to discharge home. Levaquin continued IV. Will continue to monitor. Assessment and Plan This note was transcribed by HO Robbins. I, Dr. Leonila Alexander personally performed the history, physical exam, and medical decision making; and confirmed the accuracy of the information in the transcribed note. Authenticated by Dr. Leonila Alexander on 03/31/17 at 0831. DC plan; Patient improved satting well on room air. DC home in stable condition to f/u as OP wit PCP and consultants Diet healthy heart diet Activity ad crystal as tolerated Meds per med reconciliations Discussed Condition With pt, nurse, family- at bedside Physician Certification 2 Midnight Certification Type: Admission for Inpatient Services Order for Inpatient Services The services are ordered in accordance with Medicare regulations or non- Medicare payer requirements, as applicable. In the case of services not specified as inpatient-only, they are appropriately provided as inpatient services in accordance with the 2-midnight benchmark. Estimated LOS (days): 1 1 days is the estimated time the patient will need to remain in the hospital, assuming treatment plan goals are met and no additional complications. Post-Hospital Plan: Home Leonila Alexander MD Mar 31, 2017 08:31 Екатерина Negrete Mar 31, 2017 12:10
[2017-03-31] MEDS ORDERED: SODIUM CHLORIDE 0.9% FLUSH 10 ML FLUSH IV FLUSH SCH (09:00)
[2017-03-31] MEDS ORDERED: LEVOFLOXACIN 750 MG PREMIX INJ 150 ML IV SCH (09:00)
[2017-03-31] MEDS ORDERED: IPRATROPIUM BROMIDE 17 MCG/ACT 12.9 GM INHALER INH PRN (09:30)
[2017-03-31] MEDS ORDERED: LISINOPRIL 20 MG TAB PO SCH (10:00)
[2017-03-31] MEDS ORDERED: cloNIDine HCL 0.2 MG TAB PO SCH (10:00)
[2017-03-31] MEDS ORDERED: CARVEDILOL 12.5 MG TAB PO SCH (10:00)
[2017-03-31 10:21] VITALS: O2SAT 95
[2017-03-31] MEDS ORDERED: NEBULIZER1 MI1 (11:07)
[2017-03-31 12:00] VITALS: BP 183/74; PULSE 82; RESP 20; TEMP 97.8; O2SAT 94
[2017-03-31] MEDS ORDERED: methylPREDNISolone SOD SUCC 125 MG/2 ML VIAL IV PUSH SCH (13:00)
[2017-03-31] MEDS ORDERED: Albuterol-Ipratropium Neb NEB (14:22)
--- NOTE | 2017-03-31 14:22 | HHI.DCPOC ---
Discharge Care Plan Diagnosis: (1) COPD exacerbation Goals to Promote Your Health * To prevent worsening of your condition and complications * To maintain your health at the optimal level Directions to Meet Your Goals Take your medications as prescribed Follow your dietary instruction Follow activity as directed Keep your appointments as scheduled Take your immunizations and boosters as scheduled If your symptoms worsen call your PCP, if no PCP go to Urgent Care Center or Emergency Room Smoking is Dangerous to Your Health. Avoid second hand smoke Call the 24-hour hour crisis hotline for domestic abuse at Екатерина Negrete Mar 31, 2017 14:22
[2017-03-31] MEDS ORDERED: PRED20 PO (14:24)
[2017-03-31] MEDS ORDERED: PULM180I INH (14:49)
[2017-03-31] MEDS ORDERED: cloNIDine HCL 0.2 MG TAB PO ONE (15:00)
--- NOTE | 2017-03-31 16:18 | EKG ---
Date Performed: 03/30/2017 Time Performed: 16:05:12 PTAGE: 72 years EKG: Sinus rhythm WITH FIRST DEGREE AV BLOCK ABNORMAL ECG PREVIOUS TRACING : 08/01/2013 07.16 Since previous tracing, no significant change noted DOCTOR: Camron Molina Interpretating Date/Time 03/31/2017 16:17:57
--- NOTE | 2017-03-31 16:19 | EKG ---
Date Performed: 03/31/2017 Time Performed: 02:01:58 PTAGE: 72 years EKG: Sinus rhythm POSSIBLE RIGHT VENTRICULAR CONDUCTION DELAY POSSIBLE LEFT VENTRICULAR HYPERTROPHY ABNORMAL ECG PREVIOUS TRACING : 03/30/2017 16.05 Since previous tracing, no significant change noted DOCTOR: Camron Molina Interpretating Date/Time 03/31/2017 16:18:18
== END 2017-03-31 15:49 | disposition home or self-care (01) ==
LOC: PHED 15:32 → PHEDA 21:01 → PH3B 22:47
PROVIDERS: ADMIT Hospitalist; ATTEND Hospitalist
DX: J44.1 Chronic obstructive pulmonary disease with (acute) exacerbation (principal); R07.9 Chest pain, unspecified; R94.31 Abnormal electrocardiogram [ECG] [EKG]; I10 Essential (primary) hypertension; I25.10 Atherosclerotic heart disease of native coronary artery without angina pectoris; R59.0 Localized enlarged lymph nodes; E78.5 Hyperlipidemia, unspecified; E11.9 Type 2 diabetes mellitus without complications; I44.0 Atrioventricular block, first degree; G47.30 Sleep apnea, unspecified
CPT/HCPCS: 36600; 71045; 71275; 80048; 82550; 82552; 82805; 83735; 83880; 84484; 85025; 85610; 85730; 87804; 93005; 94640; 94664; 96365; 96366; 96375; 96376; 99285; G0378; J1940; J1956; J2930; Q9967